=== PATIENT | female | born 2000 | race Caucasian/White ===

== ENCOUNTER 2021-06-25 17:39 | Emergency (ER) | payer MEDICAID, SELFPAY ==
[2021-06-25 17:39] VITALS: BP 124/59; PULSE 98; RESP 20; TEMP 36.9; O2SAT 97; BMI 39.6
--- NOTE | 2021-06-25 17:39 | ECG_ITS ---
APPROVED REPORT Exam: Resting ECG HR:99 bpm ECG Measurements Heart Rate 99 AXES NE 140 P 48 QRSd 84 QRS 48 QT 352 T 29 QTc 451 Conclusion Normal sinus rhythm Normal ECG Electronically signed by : Chance Grimm MD 06/27/2021 10:55:19
--- NOTE | 2021-06-25 17:43 | [facility].EDCP ---
ED Disposition Clinical Impression: Atypical chest pain Qualifiers: Weeks of gestation: unspecified Qualified Code(s): Z34.90 - Encounter for supervision of normal , unspecified, unspecified trimester Disposition: Home, Self-Care Condition on Discharge: Good Instructions: DI for Atypical Chest Pain Prescriptions: Ondansetron [Ondansetron Odt 8mg Tab] 8 mg PO QID 4 Days #16 tab Transmission Status: Pending to [id number] Referrals: Provider,Referral, [Primary Care Provider] - - Critical Care Critical Care Time: No Attestation: On , the high probability of a clinically significant, sudden or life threatening deterioration of the following system(s) required my full and direct attention, intervention and personal management. The time I documented below is in addition to time spent performing reported procedures but includes the following listed in this critical care notation. Medical Decision Making - Medical Records Medical records reviewed: Yes: I reviewed the patient's medical records. - Ambrocio Inquiry Pt receiving controlled substance: No Vital Signs: 06/25/21 17:39 Temperature 98.4 F Temperature Source Oral Pulse Rate [Right Radial] 98 H Respiratory Rate 20 Blood Pressure [Right Arm] 124/59 L Blood Pressure Mean [Right Arm] 80 Blood Pressure Source [Right Arm] Automatic Cuff Blood Pressure Position [Right Arm] Sitting 02 Sat by Pulse Oximetry 97 Oxygen Delivery Method Room Air - Lab Data Lab results reviewed: Yes: I reviewed the patient's lab results. Lab Results 06/25/21 18:00: WBC 15.0 H, RBC 4.21, Hgb 10.8 L, Hct 32.9 L, MCV 78.0 L, MCH 25.7 L, MCHC 33.0, RDW 15.4, Plt Count 363, MPV 8.7, Neut % (Auto) 63.6, Lymph % (Auto) 27.2, [place] % (Auto) 6.8, Eos % (Auto) 1.8, Baso % (Auto) 0.7, Neut # (Auto) 9.5 H, Lymph # (Auto) 4.1, [place] # (Auto) 1.0, Eos # (Auto) 0.3, Baso # (Auto) 0.1, Total Counted 100, Neutrophils % (Manual) 74, Lymphocytes % (Manual) 16, Monocytes % (Manual) 8, Eosinophils % (Manual) 2, Platelet Estimate Normal, Hypochromasia 1+, Anisocytosis 1+ 06/25/21 18:00: Sodium 137, Potassium 3.1 L, Chloride 112 H, Carbon Dioxide 18 L, Anion Gap 10.1, BUN 6 L, Creatinine 0.50 L, Estimated Creat Clear 244, Estimated GFR 157, Est GFR ( Amer) 190, Glucose 99, Calcium 8.8, Total Bilirubin 0.2, AST 18, ALT 13, Alkaline Phosphatase 135 H, Troponin I < 0.01, Total Protein 6.4, Albumin 3.1 L, Globulin 3.3 H, Albumin/Globulin Ratio 0.9 L, Acetaminophen < 10 L Result diagrams: 06/25/21 18:00 06/25/21 18:00 Orders (Tests/Meds): ED MEDICATIONS Discontinued Medications Generic Name Dose Route Start Last Admin Trade Name Freq PRN Reason Stop Dose Admin Acetaminophen 1,000 mg 06/25/21 17:49 06/25/21 18:05 Acetaminophen 500mg Tab PO 06/25/21 17:50 1,000 mg ONCE ONE Administration Ondansetron HCl 4 mg 06/25/21 17:48 06/25/21 18:05 Ondansetron 4mg/2ml Vial IV 06/25/21 17:49 4 mg ONCE ONE Administration ORDERS Category Date Time Status Comprehensive Metabolic Panel Stat Lab 06/25/21 18:51 Ordered Lipase Stat Lab 06/25/21 18:51 Ordered Troponin I Q3H Lab 06/25/21 21:00 Ordered UA [Urinalysis and Microscopic] Stat Lab 06/25/21 18:32 Received - ECG Data Tracing #1 I reviewed this ECG and interpreted as documented below: Patient is EKG was performed at 1740. It shows a normal sinus rhythm at a rate of 99 bpm, there is no ischemia. Normal axes. Normal EKG - KAMAR Score for Non-Stemi Age of Patient: <30 years old Heart Rate: 90-109 bpm Systolic Blood Pressure: 120-139 mmhg Serum Creatinine: 0.40-0.79 mg/dl CHF Killip Class: I-No CHF Other Risk Factors: None Non-Stemi Risk Score: 53 Medical Decision Narrative: The patient's work-up in the emergency department did not reveal any life-threatening or dangerous causes for the patient's chest pain. The patient vomited in the emergency department. She rece
[2021-06-25 18:24] LABS: Basophils # 0.1 K/mm3 (0-0.2); Basophils % 0.7 % (0.1-2.0); Eosinophils # 0.3 K/mm3 (0.0-0.4); Eosinophils % 1.8 % (0.1-12.0); Hematocrit 32.9 % (37.0-47.0); Hemoglobin 10.8 g/dL (12.2-16.2); Lymphocytes # 4.1 K/mm3 (0.7-4.5); Lymphocytes % 27.2 % (10-50); Mean Corpuscular Hemoglobin 25.7 pg (27.0-31.2); Mean Platelet Volume 8.7 fl (7.4-10.4); Monocytes % 6.8 % (1.7-9.3); Neutrophils # 9.5 K/mm3 (1.8-7.8); Neutrophils % 63.6 % (37.0-80.0); Platelet Count 363 K/mm3 (142-424); Red Blood Count 4.21 M/mm3 (4.20-5.40); Red Cell Distribution Width 15.4 % (11.5-17.5)
[2021-06-25 18:27] LABS: MANUAL DIFFERENTIAL MANUAL DIFFERENTIAL (MANUAL DIFF)
[2021-06-25 18:32] LABS: Alanine Aminotransferase 13 U/L (12-78); Albumin Level 3.1 g/dl (3.5-5.0); Albumin/Globulin Ratio 0.9 (1.1-1.8); Alkaline Phosphatase 135 U/L (38-126); Anion Gap 10.1 mEq/L (5-15); Aspartate Amino Transferase 18 U/L (14-36); Bilirubin,Total 0.2 mg/dl (0.2-1.3); Blood Urea Nitrogen 6 mg/dl (7-17); Calcium 8.8 mg/dl (8.4-10.2); Carbon Dioxide 18 mmol/L (22.0-30.0); Chloride 112 mmol/L (98-107); Creatinine Clearance Estimated 244 mL/min (50-200); Estimated Glomerular Filt Rate 157 ml/min (>60); GFR (African American) 190 ML/MIN (>60); Globulin 3.3 g/dL (1.3-3.2); Glucose 99 mg/dl (74-100); Potassium 3.1 mmoL/L (3.5-5.1); Sodium 137 mmol/L (136-145); Total Protein,Serum 6.4 g/dl (6.3-8.2)
[2021-06-25 18:34] LABS: Acetaminophen < 10 ug/ml (10-30)
[2021-06-25 18:45] LABS: Troponin I < 0.01 ng/ml (0.00-0.034)
[2021-06-25 19:02] LABS: Eosinophils % 2 % (0-3); Lymphocytes % 16 % (10-50); Monocytes % 8 % (2-9); Neutrophils % 74 % (42-76); Total Cells Counted 100
[2021-06-25 19:03] LABS: Anisocytosis 1+; Hypochromasia 1+; Platelet Estimate Normal
[2021-06-25 19:18] LABS: Microscopic, Urine URINE MICROSCOPIC (MICROSCOPIC)
[2021-06-25 19:21] LABS: Appearance,Urine SL CLOUDY (Clear); Bilirubin,Urine Negative (Negative); Blood, Urine Negative (Negative); Color,Urine YELLOW (Yellow); Glucose,Urine (UA) Negative (Negative); Ketones,Urine TRACE (Negative); Leukocyte Esterase,Urine 1+ (Negative); Nitrate,Urine Negative (Negative); Protein,Urine TRACE (Negative); Urobilinogen,Urine 0.2 EU/dl (0.2)
[2021-06-25 19:23] VITALS: BP 128/65; PULSE 80; RESP 16; TEMP 36.7; O2SAT 100
[2021-06-25 19:31] LABS: Bacteria,Urine Trace /lpf; RBC,Urine Occasional #/hpf (0-3); Squamous Epithelial Cell,Urine Occasional #/hpf (0-5)
[2021-06-25 20:31] LABS: Lipase 148 U/L (23-300)
== END 2021-06-25 19:37 | disposition home or self-care (01) ==
PROVIDERS: Emergency Provider Emergency Medicine
DX: R07.89 Other chest pain (principal); Z34.90 Encounter for supervision of normal pregnancy, unspecified, unspecified trimester
CPT/HCPCS: 80053; 80329; 81001; 83690; 84484; 85007; 85025; 87086; 93005; 96374; 99283; J2405

== ENCOUNTER 2021-09-23 21:52 | Emergency (ER) | payer MEDICAID, SELFPAY ==
--- NOTE | 2021-09-23 21:42 | ECG_ITS ---
APPROVED REPORT Exam: Resting ECG HR:71 bpm ECG Measurements Heart Rate 71 AXES LA 158 P 54 QRSd 98 QRS 62 QT 390 T 54 QTc 423 Conclusion Normal sinus rhythm Normal ECG Electronically signed by : Chance Grimm MD 09/24/2021 13:55:47
[2021-09-23 21:53] VITALS: BP 134/78; PULSE 70; RESP 20; TEMP 36.6; O2SAT 99; BMI 30.2
--- NOTE | 2021-09-23 21:58 | XR_ITS ---
PROCEDURE INFORMATION: Exam: XR Chest Exam date and time: 09/23/2021 9:58 PM Age: 20 years old Clinical indication: Sternal or substernal pain; Patient HX: Pain in center of chest. Smoker. No chest surgeries. ; Additional info: Chest pain TECHNIQUE: Imaging protocol: XR of the chest. Views: 1 view. COMPARISON: No relevant prior studies available. FINDINGS: Lungs: No consolidation. Pleural spaces: No pneumothorax. Heart/Mediastinum: No cardiomegaly. Bones/joints: No acute abnormality. IMPRESSION: No acute findings.
[2021-09-23 22:12] LABS: Coronavirus 19, PCR Not Detected (NotDetected); Influenza A, PCR Not Detected (NotDetected); Influenza B, PCR Not Detected (NotDetected)
[2021-09-23 22:15] LABS: Basophils # 0.2 K/mm3 (0-0.2); Basophils % 1.8 % (0.1-2.0); Eosinophils # 0.6 K/mm3 (0.0-0.4); Eosinophils % 5.3 % (0.1-12.0); Hematocrit 40.2 % (37.0-47.0); Hemoglobin 12.8 g/dL (12.2-16.2); Lymphocytes # 4.1 K/mm3 (0.7-4.5); Lymphocytes % 38.3 % (10-50); Mean Corpuscular HGB Conc 31.7 g/dL (31.8-35.4); Mean Corpuscular Hemoglobin 24.5 pg (27.0-31.2); Mean Corpuscular Volume 77.2 fl (81-99); Mean Platelet Volume 7.6 fl (7.4-10.4); Monocytes # 0.5 K/mm3 (0.1-1.0); Neutrophils # 5.2 K/mm3 (1.8-7.8); Neutrophils % 49.5 % (37.0-80.0); Platelet Count 400 K/mm3 (142-424); Red Blood Count 5.21 M/mm3 (4.20-5.40); Red Cell Distribution Width 15.4 % (11.5-17.5); White Blood Count 10.6 K/mm3 (4.5-13.0)
[2021-09-23 22:23] LABS: Alanine Aminotransferase 66 U/L (12-78); Albumin Level 3.9 g/dl (3.5-5.0); Albumin/Globulin Ratio 1.2 (1.1-1.8); Alkaline Phosphatase 89 U/L (38-126); Anion Gap 6.6 mEq/L (5-15); Aspartate Amino Transferase 46 U/L (14-36); Blood Urea Nitrogen 13 mg/dl (7-17); Calcium 9.2 mg/dl (8.4-10.2); Carbon Dioxide 31 mmol/L (22.0-30.0); Chloride 106 mmol/L (98-107); Creatinine Clearance Estimated 138 mL/min (50-200); Estimated Glomerular Filt Rate 107 ml/min (>60); GFR (African American) 129 ML/MIN (>60); Globulin 3.2 g/dL (1.3-3.2); Glucose 98 mg/dl (74-100); Potassium 3.6 mmoL/L (3.5-5.1); Sodium 140 mmol/L (136-145); Total Protein,Serum 7.1 g/dl (6.3-8.2)
[2021-09-23 22:26] LABS: Bilirubin,Total 0.1 mg/dl (0.2-1.3)
[2021-09-23 22:37] LABS: Troponin I < 0.01 ng/ml (0.00-0.034)
--- NOTE | 2021-09-23 22:40 | [facility].EDCP ---
ED Disposition Clinical Impression: Atypical pneumonia Disposition: Home, Self-Care Condition on Discharge: Fair Instructions: DI for Atypical Chest Pain, DI for Atypical Pneumonia Additional Instructions: You have been evaluated for chest pain, cough. Diagnosed with atypical pneumonia. Please take prednisone and azithromycin as prescribed. Follow-up with your primary care doctor in 1 to 2 days for symptom recheck. Return to the emergency department at once for any new or worsening symptoms, difficulty breathing, worsening chest pain, other concerns. Prescriptions: predniSONE [Prednisone 20mg Tab] 20 mg PO DAILY #5 tab Transmission Status: Pending to [facility] Azithromycin [Z-Victor M 250mg Tab] 250 mg PO DIRECTED #6 tab Transmission Status: Pending to [id number] Referrals: Nick Barlow MD [Primary Care Provider] - Time of Disposition: 23:35 - Critical Care Critical Care Time: No Attestation: On 09/23/21, the high probability of a clinically significant, sudden or life threatening deterioration of the following system(s) required my full and direct attention, intervention and personal management. The time I documented below is in addition to time spent performing reported procedures but includes the following listed in this critical care notation. Medical Decision Making - Medical Records Medical records reviewed: Yes: I reviewed the patient's medical records. - Ambrocio Inquiry Pt receiving controlled substance: No Vital Signs: 09/23/21 21:53 Temperature 97.9 F Temperature Source Oral Pulse Rate [Right] 70 Respiratory Rate 20 Blood Pressure [Right Arm] 134/78 Blood Pressure Mean [Right Arm] 96 02 Sat by Pulse Oximetry 99 Oxygen Delivery Method Room Air - Lab Data Lab Results 09/23/21 22:03: WBC 10.6, RBC 5.21, Hgb 12.8, Hct 40.2, MCV 77.2 L, MCH 24.5 L, MCHC 31.7 L, RDW 15.4, Plt Count 400, MPV 7.6, Neut % (Auto) 49.5, Lymph % (Auto) 38.3, [place] % (Auto) 5.0, Eos % (Auto) 5.3, Baso % (Auto) 1.8, Neut # (Auto) 5.2, Lymph # (Auto) 4.1, [place] # (Auto) 0.5, Eos # (Auto) 0.6 H, Baso # (Auto) 0.2 09/23/21 22:03: Sodium 140, Potassium 3.6, Chloride 106, Carbon Dioxide 31 H, Anion Gap 6.6, BUN 13, Creatinine 0.70, Estimated Creat Clear 138, Estimated GFR 107, Est GFR ( Amer) 129, Glucose 98, Calcium 9.2, Total Bilirubin 0.1 L, AST 46 H, ALT 66, Alkaline Phosphatase 89, Troponin I < 0.01, Total Protein 7.1, Albumin 3.9, Globulin 3.2, Albumin/Globulin Ratio 1.2 09/23/21 22:03: SARS-CoV-2 (PCR) Not detected, Influenza A Untype (PCR) Not detected, Influenza Type B (PCR) Not detected Result diagrams: 09/23/21 22:03 09/23/21 22:03 Orders (Tests/Meds): ORDERS Category Date Time Status Troponin I Q3H Lab 09/24/21 01:00 Ordered Troponin I Q3H Lab 09/24/21 04:00 Ordered Urine , HCG Qual. Stat Lab 09/23/21 21:59 Ordered ECG Request by /Flo Stat Y 09/23/21 21:58 Ordered - ECG Data Tracing #1 Sinus rhythm with ventricular rate of 71 bpm. QRS 98, QTc 423. No ST segment elevation. No arrhythmia. - KAMAR Score for Non-Stemi Age of Patient: <30 years old Heart Rate: 70-89 bpm Systolic Blood Pressure: 120-139 mmhg Serum Creatinine: 0.40-0.79 mg/dl CHF Killip Class: I-No CHF Other Risk Factors: None Non-Stemi Risk Score: 47 Medical Decision Narrative: In summary this is a 20-year-old female with history of asthma and tobacco use disorder presenting to the emergency department with chest pain. Patient clinically stable on arrival. Vital signs within normal limits. She appears to feel generally unwell. Concern for pneumonia, viral upper respiratory infection, COVID-19. Cannot exclude atypical ACS, myocarditis. Will obtain CBC, BMP, chest x-ray, EKG, troponin profile, Covid testing, influenza testing. Initial EKG is reassuring. No signs of ischemia. Chest x-ray does not show focal or multifocal pneumonia. Covid test negative. Influen
[2021-09-23 23:01] VITALS: BP 105/53; PULSE 64; RESP 20; O2SAT 100
[2021-09-23 23:30] VITALS: BP 111/83; PULSE 59; RESP 20; O2SAT 99
[2021-09-24 00:04] LABS: HCG Qualitative, Serum Negative (Negative)
[2021-09-24 00:31] LABS: Troponin I < 0.01 ng/ml (0.00-0.034)
[2021-09-24 00:55] VITALS: BP 110/68; PULSE 70; RESP 20; TEMP 36.7; O2SAT 99
== END 2021-09-24 01:00 | disposition home or self-care (01) ==
PROVIDERS: Emergency Provider Emergency Medicine; PCP Specialist
DX: J18.9 Pneumonia, unspecified organism (principal); J45.909 Unspecified asthma, uncomplicated; F17.210 Nicotine dependence, cigarettes, uncomplicated
CPT/HCPCS: 71045; 80053; 84484; 84703; 85025; 93005; 99283; C9803; U0003; U0005

== ENCOUNTER → 2021-11-24 10:20 | Outpatient (CLI) | payer MEDICAID, SELFPAY ==
[2021-11-25 10:44] LABS: Covid-19 Nasal PCR Sendout Lex POSITIVE
== END ==
PROVIDERS: Visit Provider Nurse Practitioner
DX: U07.1 COVID-19 (principal)
CPT/HCPCS: C9803; U0004; U0005